=== PATIENT | male | born 1980 | race Caucasian/White ===

== ENCOUNTER 2017-02-06 17:02 | Emergency (ER) | payer OTHER ==
[~2017-02-06] VITALS: Ht 177.8 cm; Wt 130.0 kg
[2017-02-06 17:12] VITALS: TEMP 36.9; Ht 177.8 cm; Wt 130.0 kg
[2017-02-06] MEDS ORDERED: HYDROCODONE/ACETAMOPHEN 5/325MG TAB PO ONE (17:45)
--- NOTE | 2017-02-06 18:00 | DIAGNOSTIC IMAGING REPORT ---
LEFT KNEE 3 VIEWS CLINICAL HISTORY: Left knee pain following injury. COMPARISON: None FINDINGS: Alignment of the left knee is anatomic. There is a moderate left knee joint effusion. No fracture is identified. Joint spaces are preserved. There is minimal osteophytosis of the left knee. IMPRESSION: 1. No acute fracture. 2. Moderate-sized left knee joint effusion. Electronically signed by: Oseas Bianchi M.D. 02/06/2017 5:59 PM Dictated Date/Time: 02/06/2017 5:57 PM
[2017-02-06] MEDS ORDERED: IBUP-1050 PO (18:24)
[2017-02-06 19:06] VITALS: BP 147/91; PULSE 79; O2SAT 97
--- NOTE | 2017-02-07 01:21 | EMERGENCY ROOM VISIT NOTE ---
ED Visit Note First contact with patient: 17:21 Chief Complaint: Left knee pain. History of Present Illness: Mr. Lopez is a 36-year-old white male who is brought into the ED via wheelchair accompanied by 2 residential guards. Patient reports 3 days ago he was playing volleyball and residential and when he attempted to pickup football he injured his left knee. He reports all his body weight was going forward and his foot was planted in the ground and he twisted his knee. Since that time he reports he has been having moderate to severe pain over the entire knee. Currently he describes his pain as sharp and throbbing. He rates his discomfort 6/10. His pain is nonradiating. Patient's pain worsens with palpation over the anterior posterior aspect of the knees including the patella , patellar tendon and tendon attachments of the hamstring muscle group, flexion beyond 30, the last few degrees of extension and all hyperextension. He has not identified any alleviating factors related to the pain. He reports he has been using ibuprofen without relief of his discomfort; he did report he attempted to use ice was unsuccessful because of increased discomfort. Associated with patient's pain he has noted anterior swelling of the knee. He denies hip pain, 5 pain, lower leg pain, ankle pain, foot pain, leg weakness/ numbness/tingling and previous significant injuries, surgeries to the knee. Review of Systems: As noted above in history of present illness. Past Medical History: Status post right knee surgery for ligamentous repair. Current Medications: Patient denies. Allergies to Medications: Patient denies. Social History: Patient is currently incarcerated; he admits to tobacco use. Physical Examination: Vital Signs: Date Time Temp Pulse Resp B/P (MAP) Pulse Ox O2 Delivery O2 Flow Rate FiO2 02/06/17 19:06 79 20 147/91 97 02/06/17 17:12 36.9 100 20 164/93 94 Room Air GENERAL: 36-year-old male in moderate distress due to pain, nontoxic-appearing, afebrile and hemodynamically stable. NEUROLOGICAL: Awake, alert and oriented to person, place and time. Answering questions appropriately and following commands. SKIN: Warm, dry and pink. No soft tissue trauma noted. LEFT LOWER EXTREMITY: No gross bony deformity. No shortening or malrotation. No tenderness over the hip, thigh, lower leg, ankle or foot. Moderate tenderness over the anterior and posterior aspects of the knee, the patellar tendon and the tendon attachments of the hamstring muscle group. Patient was difficult to examine due to his increasing pain with palpation or any movements of the knee. I was not able to get him into complete extension or hyperextension due to pain. Negative patellar apprehension test. Negative patellar swelling. Questionable positive joint effusion with ballottement test. Minimal tenderness over the medial and lateral joint lines without bony deformity, bony crepitus. I was not able to stress the ligamentous structures due to patient's pain and limited range of motion. There was tenderness as previously noted over the tendinous attachments of the hamstring muscle groups without any swelling or deformity. Within the stable yet full range of motion in plantar flexion and dorsiflexion of the ankle. Throughout the foot the skin was warm and pink, capillary refill is brisk. Distal pulses and sensations were intact. ED Course: Patient is assessed as noted above. Patient's medication list was reviewed. Patient was given one Pandora 5/325 mg tablet by mouth for pain and ice for swelling. Left Knee X-Rays: Were read by myself and the radiologist showing no acute fractures or dislocations. Moderate joint effusion. Patient was placed in a posterior Ortho-Glass knee splint in position of comfort which was slight flexion. He was trained and educated on the use of nonweightbearing crutches. Patient was educated about today's findings and instructed on his treatment plan ; he verbalizes understanding and agreement with this plan. Clinical Impression: Left knee pain. Left knee joint effusion. Disposition: Patient discharged back to residential accompanied by his guards; prior to departure he was reassessed and subjectively reported he was feeling slightly better and rated his discomfort 5/10. Plan: I recommended to the residential staff comfort measures including rest, ice, elevation, splint and crutch use and a sliding pain medication scale of ibuprofen, see acetaminophen and Pandora. I recommended 2 residential staff and patient to follow-up with orthopedics if no better in 5-6 days. I recommended that the patient be brought to the emergency department for worsening pain, worsening swelling, leg weakness/numbness/tingling or any new/ concerning symptoms.
== END 2017-02-06 19:07 | disposition home or self-care (01) ==
LOC: C.EDB 17:04 → C.EDD 19:07
DX: M25.562 Pain in left knee (principal); M25.462 Effusion, left knee; X50.0XXA Overexertion from strenuous movement or load, initial encounter; Y92.149 Unspecified place in prison as the place of occurrence of the external cause; Y93.68 Activity, volleyball (beach) (court); Y99.8 Other external cause status; Z72.0 Tobacco use